=== PATIENT | male | born 1990 | race Caucasian/White ===

== ENCOUNTER 2017-02-08 10:59 | Emergency (ER) | payer BC, MEDICAID ==
[2017-02-08 11:13] VITALS: BP 138/80
[2017-02-08] MEDS ORDERED: Proparacaine 0.5% Ophth Soln 15 ML Bottle EYELF ONE (11:25)
--- NOTE | 2017-02-08 11:52 | EDM.PDOC ---
[id number] SOMETHING IN LT EYE Time Seen by Provider: 02/08/17 11:20 Source of Information: Reports: Patient History Limitations: Reports: No Limitations - History of Present Illness INITIAL COMMENTS - FREE TEXT/NARRATIVE: 26-year-old male was working with some [employer] rock yesterday who feels like something is in his left eye. A small amount of redness is morning, no visual complaint. Severity: Mild left eye Pain Score (Numeric/FACES): 4 - Related Data Allergies Allergy/AdvReac Type Severity Reaction Status Date / Time No Known Allergies Allergy Verified 02/08/17 11:14 Home Meds: Home Meds NK [No Known Home Meds] 02/08/17 [History] Past Medical History - Past Health History Medical/Surgical History: Denies Medical/Surgical History - Past Surgical History HEENT Surgical History: Reports: Other (See Below) Other HEENT Surgeries/Procedures: metal in eye Social & Family History - Tobacco Use Smoking Status *Q: Current Some Day Smoker Years of Tobacco use: 5 Packs/Tins Daily: 0.2 Used Tobacco, but Quit: No Second Hand Smoke Exposure: No - Alcohol Use Days Per Week of Alcohol Use: 0 - Recreational Drug Use Recreational Drug Use: No ED ROS GENERAL - Review of Systems Review Of Systems: ROS reveals no pertinent complaints other than HPI. ED EXAM GENERAL W FULL EYE - Physical Exam Exam: See Below Exam Limited By: No Limitations General Appearance: Alert, No Apparent Distress Eye Exam: Left Eye: Conjunctival Injection Eyelids: Left: Erythema (Upper and lower eyelids have some edema and erythema), Foreign Body Conjunctiva & Sclera: Left: Conjunctival Edema Respiratory/Chest: No Respiratory Distress Neurological: Alert, Oriented Psychiatric: Normal Affect, Normal Mood Course - Vital Signs Last Recorded V/S: Last Vital Signs Temp 97.3 F 02/08/17 11:13 Pulse 85 02/08/17 11:13 Resp 16 02/08/17 11:13 BP 138/80 02/08/17 11:13 Pulse Ox 99 02/08/17 11:13 - Orders/Labs/Meds Meds: Medications Discontinued Medications Generic Name Dose Route Start Last Admin Trade Name Freq PRN Reason Stop Dose Admin Proparacaine HCl 1 ml 02/08/17 11:25 02/08/17 11:30 Proparacaine 0.5% Ophth Soln EYELF 02/08/17 11:26 1 ml ONETIME ONE Administration - Re-Assessments/Exams Free Text/Narrative Re-Assessment/Exam: 02/08/17 11:51 Fluorescin staining after proparacaine anesthesia was done and showed no abnormality. I then examined the entire cornea, inverted both eyelids and examined with a slit lamp and saw no foreign body. He likely has a conjunctival abrasion. He'll be treated with gentamicin eyedrops for the next several days and can recheck with optometry Friday if not improving. Departure - Departure Time of Disposition: 12:02 Disposition: Home, Self-Care 01 Condition: good Clinical Impression: Conjunctival abrasion Qualifiers: Encounter type: initial encounter Laterality: left Qualified Code(s): S05.02XA - Injury of conjunctiva and corneal abrasion without foreign body, left eye, initial encounter - Discharge Information Instructions: Eye Foreign Body, [id number] Referrals: PCP,None [Primary Care Provider] - Forms: ED Department Discharge Care Plan Goals: Put 2 drops of antibiotic medicine in the left eye 3 times a day for the next 4 days. Recheck in 2-3 days if not significant improvement or return sooner if worsening.
== END 2017-02-08 12:03 | disposition home or self-care (01) ==
LOC: JP.ED 10:59
DX: S05.02XA Injury of conjunctiva and corneal abrasion without foreign body, left eye, initial encounter (principal); F17.210 Nicotine dependence, cigarettes, uncomplicated; X58.XXXA Exposure to other specified factors, initial encounter
CPT/HCPCS: 99283; A9270

== ENCOUNTER 2021-07-28 11:57 | Emergency (ER) | payer BC, OTHER ==
[2021-07-28 12:11] VITALS: BP 116/81; PULSE 65
[2021-07-28] MEDS ORDERED: Bacitracin Oint 1 GM U/D Packet TOP ONE (12:34)
--- NOTE | 2021-07-28 12:35 | EDM.PDOC ---
ED HPI GENERAL MEDICAL PROBLEM - General Chief Complaint: Laceration Stated Complaint: L ELBOW LACERATION Time Seen by Provider: 07/28/21 12:32 Source of Information: Reports: Patient, RN Notes Reviewed History Limitations: Reports: No Limitations - History of Present Illness INITIAL COMMENTS - FREE TEXT/NARRATIVE: 30-year-old gentleman presents emergency department day with a laceration to his left elbow he injured himself while working with sheet metal has no functional complaints. Left Arm Pain Score (Numeric/FACES): 2 - Related Data Allergies Allergy/AdvReac Type Severity Reaction Status Date / Time No Known Allergies Allergy Verified 07/28/21 12:12 Home Meds: Home Meds NK [No Known Home Meds] 02/08/17 [History] Past Medical History - Past Health History Medical/Surgical History: Denies Medical/Surgical History - Past Surgical History HEENT Surgical History: Reports: Other (See Below) Other HEENT Surgeries/Procedures: metal in eye Social & Family History - Tobacco Use Tobacco Use Status *Q: Current Every Day Tobacco User Years of Tobacco use: 10 Packs/Tins Daily: 1 - Recreational Drug Use Recreational Drug Use: No ED ROS GENERAL - Review of Systems Review Of Systems: See Below Skin: Reports: Wound ED EXAM, SKIN/RASH Exam: See Below Text/Narrative:: There is a 4 cm laceration over the elbow he has full range of motion the elbow it is jagged completely through the dermis radial pulses +2 sensation is intact full range of motion of all digits ED SKIN PROCEDURES - Laceration/Wound Repair Left Arm Appearance: Subcutaneous, Irregular Distal NVT: Neuro & Vascular Intact, No Tendon Injury Anesthetic Type: Local Local Anesthesia - Lidocaine (Xylocaine): 1% Plain Local Anesthetic Volume: 3cc Skin Prep: Saline Saline Irrigation (cc's): 60 Exploration/Debridement/Repair: Wound Explored, In a Bloodless Field, Explored to Base Closed with: Sutures Lac/Wound length In cm: 4 Suture Size: 3-0 # of Sutures: 6 Suture Type: Nylon, Interrupted Sterile Dressing Applied: Nurse Tetanus Status Addressed: Yes (2013) Complications: No Course - Vital Signs Last Recorded V/S: Last Vital Signs Temp 97.0 F 07/28/21 12:11 Pulse 65 07/28/21 12:11 Resp 16 07/28/21 12:11 BP 116/81 07/28/21 12:11 Pulse Ox 97 07/28/21 12:11 - Orders/Labs/Meds Meds: Medications Discontinued Medications Generic Name Dose Route Start Last Admin Trade Name Ranjit PRN Reason Stop Dose Admin Bacitracin 1 dose 07/28/21 12:34 07/28/21 12:53 Bacitracin Oint 1 Gm U/D Packet TOP 07/28/21 12:35 1 dose ONETIME ONE Administration Lidocaine HCl 5 ml 07/28/21 12:34 07/28/21 12:53 Lidocaine 1% 5 Ml Sdv INJECT 07/28/21 12:35 5 ml ONETIME ONE Administration Departure - Departure Time of Disposition: 13:34 Disposition: Home, Self-Care 01 Condition: Fair Clinical Impression: Laceration of elbow, left Qualifiers: Encounter type: initial encounter Qualified Code(s): S51.012A - Laceration without foreign body of left elbow, initial encounter - Discharge Information Instructions: Laceration Care, Adult Referrals: PCP,None [Primary Care Provider] - Forms: ED Department Discharge Additional Instructions: Suture removal in 10 days, follow wound care instruction sheet: Call or return to the emergency department worsening of symptoms, can return to the emergency department or follow-up with primary care to remove sutures Sepsis Event Note (ED) - Evaluation Sepsis Screening Result: No Definite Risk - Focused Exam Vital Signs: Vital Signs Temp Pulse Resp BP Pulse Ox 07/28/21 12:11 97.0 F 65 16 116/81 97 07/28/21 12:09 97.0 F 65 16 116/81 97 - Assessment/Plan Plan: Assessment Acuity = acute Site and laterality = left elbow laceration Etiology = sheet-metal Manifestations = none Location of injury = Home Lab values = none Plan Suture removal in 10 days follow wound care instruction sheet This note was dictated using [employer] voice recognition software please call with any questions on syntax or grammar.
== END 2021-07-28 13:47 | disposition home or self-care (01) ==
LOC: JP.ED 11:57
DX: S51.012A Laceration without foreign body of left elbow, initial encounter (principal); Z72.0 Tobacco use; W26.8XXA Contact with other sharp object(s), not elsewhere classified, initial encounter; Y99.0 Civilian activity done for income or pay
CPT/HCPCS: 12002; 99282-25